=== PATIENT | male | born 1970 | race Caucasian/White ===

== ENCOUNTER 2016-10-25 08:14 | Emergency (ER) | payer OTHER ==
--- NOTE | 2016-10-25 10:38 | ED NURSING NOTES ---
Clinical Report - Nurses [facility] [address] [place] [address] 10/25/2016 8:19 Patient: TASH ODEN [facility]#: [id number] TRIAGE Triage time 08:Oct 25 2016. Acuity: LEVEL 4. Chief Complaint: Location of symptoms- left 2nd finger (Slammed finger in door of machinery and pulled). 08:26 10/25/16. SEPSIS SCREEN: Sepsis Screen. Negative (no infection suspected/documented). BRUNO COMA SCORE: Bruno Coma Scale: 15- eyes open spontaneously (4); best verbal response- oriented x 4 (5); best motor response- obeys commands (6). --08:26 Darline Palomares R.N. 08:20 10/25/16. BP: 134/92 (regular adult cuff) taken on the right arm, while sitting. HR: 82 (regular). RR: 18 (regular). O2 saturation: 99% on room air. Temp: 98.4 F (oral). Pain level now: 01/13. --08:26 Darline Palomares R.N. Weight: 90.7 kg stated. Height/Length: 74 inches Per Patient. BMI: 25.7. --08:24 Darline Palomares R.N. Medications None. --08:24 Darline Palomares R.N. Allergies Bees. --08:24 Darline Palomares R.N. History Historian: patient. Primary physician (LATRICIA MCINTOSH). This occurred just prior to arrival. Occurred at work. Treatment RECREATIONAL ASSISTANT: None. (Tylenol). SOCIAL HX: Current every day heavy tobacco smoker- less than 1 pack per day. Regular alcohol use; consumes beer. Last drink was 24 to 48 hours ago. No drug use. No infectious disease exposure. ABUSE ASSESSMENT: No report of abuse. --08:26 Darline Palomares R.N. PROBLEMS: no known problems. ADDITIONAL SURGERIES: Hernia Repair. Tonsillectomy. --08:25 Darline Palomares R.N. Interventions ID band on patient. To treatment room. --08:26 Darline Palomares R.N. PHYSICAL ASSESSMENT 08:32 10/25/16. Ambulatory to room. GENERAL / NEURO / PSYCH: Appears in pain. EXTREMITIES: Erythema on the extremities. Left index finger: tenderness, erythema, deep laceration with controlled bleeding and deformity of the fingertip. SKIN: Single tender wound present on the left hand. Skin is cool. Skin breakdown noted. --08:32 Darline Palomares R.N. NURSING PROGRESS NOTES 08:33 10/25/16. The plan of care for this patient has been created. Cold pack applied (hand placed in sterile water). Reassurance given. Two patient identifiers checked. Call light placed in reach. Side rails up x 1. Bed placed in lowest position. Brakes of bed on. Patient ready for evaluation- chart flagged and ED physician notified. --08:33 Darline Palomares R.N. 08:52 10/25/2016 Site #1 started via IV in the right forearm with an 20g angiocath, with aseptic technique and good blood return; one attempt. Blood drawn: rainbow set. Saline lock flushed with 10 mL saline. --09:07 Darline Palomares R.N. 09:07 10/25/2016 Started bag #1 1000 mL IV Fluids IV NS (Saline); bolus of 500 mL over 30 minute(s) then at 125 mL/hr over 4 hour(s) via site #1 via IV pump. Allergies verified and confirmed 5 rights. IV patency established. IV site checked: no pain, redness, or swelling. IV flushed thoroughly pre- and post-medication administration. --09:07 Darline Palomares R.N. 09:11 10/25/2016 Zofran (Ondansetron HCl) IVP 4 mg given over 1 minute(s) via site #1. Allergies verified and confirmed 5 rights. IV patency established. IV site checked: no pain, redness, or swelling. IV flushed thoroughly pre- and post-medication administration. IVP given by RN. --09:11 Darline Palomares R.N. 09:17 10/25/2016 Dilaudid (HYDROmorphone HCl PF) IVP 0.5 mg given over 1 minute(s) via site #1. Allergies verified, confirmed 5 rights and sedative warning given to the patient. IV patency established. IV site checked: no pain, redness, or swelling. IV flushed thoroughly pre- and post-medication administration. IVP given by RN. --09:17 Darline Palomares R.N. 09:19 10/25/16. ( Orthopedic surgeon is in with patient now). --09:19 Darline Palomares R.N. 09:30 10/25/2016 Zofran IVP Response: no adverse reaction. --11:02 Danis Lund R.N. 09:30 10/25/2016 Dilaudid IVP Response: no adverse reaction pain is improving. Symptoms have improved the patient feels better. --11:02 Danis Lund R.N. late entry - 09:45 10/25/16. Bleeding controlled with manual pressure. Wound cleansed with sterile saline. Debridement: Wound debridement involving skin ( full thickness) and bone performed (21-40 square centimeters) (Ortho surgeon debrided tissue, nail and bone). Applied sterile dressing consisting of xeroform. Tube gauze applied to the left 2nd finger. ( Ortho surgeon debrided and sutured wound closed). --11:44 Darline Palomares R.N. 09:55 10/25/2016 TDAP IM 0.5 mL given. (Lot#: [id number], expiration date: 05/13/2018). Given in the right deltoid. Allergies verified and confirmed 5 rights. Vaccine information statement provided to the patient. --09:55 Darline Palomares R.N. 09:55 10/25/16. ( Ortho doctor has finished.). --09:55 Darline Palomares R.N. 10:29 10/25/2016 Dilaudid (HYDROmorphone HCl PF) IVP 0.5 mg given over 1 minute(s) via site #1. Allergies verified, confirmed 5 rights and sedative warning given to the patient. IV patency established. IV site checked: no pain, redness, or swelling. IV flushed thoroughly pre- and post-medication administration. IVP given by RN. --10:31 Danis Lund R.N. 10:37 10/25/2016 TDAP IM Response: no adverse reaction. --11:03 Danis Lund R.N. 10:40 10/25/2016 IV Fluids IV NS Continued: upon discharge at the rate of 0 mL/hr. 200 mL remaining bag #1. IV patency established. IV site checked: no pain, redness, or swelling. IV flushed thoroughly. (D/c'd fluid on discharge. 800ml infused.). --11:01 Danis Lund R.N. 10:40 10/25/2016 Dilaudid IVP Response: no adverse reaction pain is improving. Symptoms have improved the patient feels better. --11:03 Danis Lund R.N. DISPOSITION / DISCHARGE 10:40 10/25/2016 Site #1 removed upon discharge. Bandage applied. --10:59 Danis Lund R.N. 10:58 10/25/16. Departure time: 1042. Condition at departure: improved and stable. No learning barriers present. Discharge instructions provided and reviewed with the patient. Reviewed warnings. Reviewed medication(s). Treatments reviewed. Reviewed referrals (F/U with Dr Marcelo Schrader). Activity restrictions reviewed. Work note given. Patient verbalized understanding. Written instructions provided in Marshallese. The patient was discharged by the physician. He was discharged home and accompanied by border guard. He left the Emergency Department ambulatory and via private vehicle. Newswriter driving. --11:00 Danis Lund R.N. 10:58 10/25/16. BP: 133/78. HR: 80. RR: 16. O2 saturation: 98% on room air. Temp: 98.5 F (oral). Pain level now: 09/15. --11:00 Danis Lund R.N. Locked/Released at 10/25/2016 11:45 by Darline Palomares R.N.
--- NOTE | 2016-10-25 10:38 | ED ORDER SUMMARY ---
..... Patient: TASH ODEN OrderSheet [facility] VisitID: [id number] [address] [place] [address] 45y, M Registration Date/Time: 10/25/2016 ORDER SHEET Weight: 90.7 kg (stated) Allergies: Bees GENERAL ORDERS: Finger Left (2nd finger left hand) (2 view) Urgent (08:33 10/25/2016 GAYLEanders R.N. per protocol) (Ack 8:36 Kelly) (8:50 GAYLEimbeck R.N.) MEDICATION ORDERS: Tdap IM 0.5 mL (NOW, per protocol) (08:55 10/25/2016 Beatrice WHITMORE) (Ack 9:19 GAYLEanders R.N.) (9:55 GAYLEanders R.N.) IV FLUIDS: Dilaudid IV 0.5 mg (HIGH ALERT MEDICATION, NOW) (08:46 10/25/2016 Beatrice WHITMORE) (9:17 JSanders R.N.) Zofran IV 4 mg (NOW) (08:47 10/25/2016 Beatrice WHITMORE) (9:11 GAYLEanders R.N.) IV NS : initial bolus 500 mL (1000 mL/hr), then 125 mL/hr for 4h (NOW); Urgent (08:47 10/25/2016 Beatrice WHITMORE) (9:07 JSanders R.N.) Dilaudid IV 0.5 mg (HIGH ALERT MEDICATION, NOW) (10:27 10/25/2016 Magda Burgos) (10:31 GAYLEimbvivek R.N.) ORDER SHEET NOTES: [Electronically signed by Darline Palomares R.N. (11:45 10/25/2016)] [Electronically signed by Robin Portillo MD (21:44 10/25/2016)] [Electronically locked/signed by Darline Palomares R.N. (11:45 10/25/2016)]
--- NOTE | 2016-10-25 10:38 | ED CLINICAL REPORT ---
Clinical Report - Physicians/Mid Levels [facility] [address] [place] [place] [address] 10/25/2016 8:19 [id number] Time Seen: 08:31. Arrived- By private vehicle. Historian- patient. HISTORY OF PRESENT ILLNESS Chief Complaint: Injury to the left index finger. The injury happened just prior to arrival. Occurred at work. The patient sustained a crush injury- caught hand in machine and door. Patient is experiencing moderate pain. No other injury. REVIEW OF SYSTEMS No chills, fever, sweats, calf pain or chest pain. No cough, difficulty breathing, pedal edema, palpitations or abdominal pain. No constipation, diarrhea, nausea, vomiting or urinary problems. All systems otherwise negative, except as recorded above. PAST HISTORY The patient's dominant hand is the right. Tetanus immunization status is unknown. SOCIAL HISTORY Current every day heavy tobacco smoker (cigarette)- less than 1 pack per day. Regular alcohol use; consumes beer. FAMILY HISTORY No significant family medical history. ADDITIONAL NOTES The nursing notes have been reviewed. PHYSICAL EXAM Vital Signs: 10/25/2016 08:20 BP: 134/92. HR: 82. RR: 18. O2 saturation: 99%. Temp: 98.4 F. Pain level now: 6/10. Have been reviewed. Head: Head atraumatic. Eyes: Pupils equal, round and reactive to light. ENT: Pharynx normal. Neck: Normal inspection. Neck supple. C-spine non-tender. CVS: Normal heart rate and rhythm. Heart sounds normal. Respiratory: No respiratory distress. Breath sounds normal. Abdomen: No visible injury. Soft and nontender. Bowel sounds normal. No organomegaly. No mass. Back: Normal inspection. Skin: Skin warm and dry. Extremities: Tip of left index finger: full thickness tip amputation present; exposed bone with a visible fracture and bone loss. No wrist injury. Extremities otherwise negative. LABS, X-RAYS, AND EKG Lt UE Digits X-ray: (Left index finger distal tuft amputation). The X-rays were independently viewed by me. PROGRESS AND PROCEDURES Course of Care: Patient is stable. Consult obtained from orthopedics. Dr. Robertson. Case discussed. Consultation performed in ED. Patient/family counseled. Old medical records ordered. Old records unavailable. ( Dr. Robertson asked to place the patient on Keflex and has a F/U with him in 5 days at ortho clinic.). Disposition: Discharged. Condition: stable. CLINICAL IMPRESSION Tip amputation of the left index finger involving all of the nail and part of the distal phalanx. INSTRUCTIONS Protect wound and keep wound area clean. Change dressing twice daily. You may wash wounds briefly, then dry. Apply neosporin twice daily. No driving or operating machinery while taking medication. Sedative medication was given during your visit. Limit use of your left hand until released. Warnings: COMPLICATIONS: Complications from this condition include: possible infection, possible injury to a nerve, possible injury to a tendon and possible injury to a ligament. Future problems may include infection, scarring, loss of function, pain and deformity. Future problems may include poor fracture healing. INFECTION: Watch for signs of infection (increasing heat and redness, pus-like drainage, swelling, or increased pain). Return or see your doctor if these signs occur. It is important to follow up with a physician for further evaluation and treatment. TETANUS: You were given a tetanus shot during your visit. Make a note for future reference. GENERAL WARNINGS: Return or contact your physician immediately if your condition worsens or changes unexpectedly, if not improving as expected, or if other problems arise. Prescription Medications: Hydrocodone/APAP 5mg/325mg: take 1 to 2 orally every 6 hours as needed for pain. Dispense fifteen (15). No refills. Cephalexin 500 mg: take 1 capsule orally every 6 hours for 7 days. No refill. Understanding of the discharge instructions verbalized by patient. Follow-up with: [facility], , [address] [place], [address] Follow up Sunday in five days. Call for an appointment. (Electronically signed by Robin Portillo MD 10/25/2016 21:44)
--- NOTE | 2016-10-25 10:38 | ED CLINICAL REPORT ---
Clinical Report - Physicians/Mid Levels [facility] [address] [place] [place] [address] 10/25/2016 8:19 [id number] Time Seen: 08:31. Arrived- By private vehicle. Historian- patient. HISTORY OF PRESENT ILLNESS Chief Complaint: Injury to the left index finger. The injury happened just prior to arrival. Occurred at work. The patient sustained a crush injury- caught hand in machine and door. Patient is experiencing moderate pain. No other injury. REVIEW OF SYSTEMS No chills, fever, sweats, calf pain or chest pain. No cough, difficulty breathing, pedal edema, palpitations or abdominal pain. No constipation, diarrhea, nausea, vomiting or urinary problems. All systems otherwise negative, except as recorded above. PAST HISTORY The patient's dominant hand is the right. Tetanus immunization status is unknown. SOCIAL HISTORY Current every day heavy tobacco smoker (cigarette)- less than 1 pack per day. Regular alcohol use; consumes beer. FAMILY HISTORY No significant family medical history. ADDITIONAL NOTES The nursing notes have been reviewed. PHYSICAL EXAM Vital Signs: 10/25/2016 08:20 BP: 134/92. HR: 82. RR: 18. O2 saturation: 99%. Temp: 98.4 F. Pain level now: 6/10. Have been reviewed. Head: Head atraumatic. Eyes: Pupils equal, round and reactive to light. ENT: Pharynx normal. Neck: Normal inspection. Neck supple. C-spine non-tender. CVS: Normal heart rate and rhythm. Heart sounds normal. Respiratory: No respiratory distress. Breath sounds normal. Abdomen: No visible injury. Soft and nontender. Bowel sounds normal. No organomegaly. No mass. Back: Normal inspection. Skin: Skin warm and dry. Extremities: Tip of left index finger: full thickness tip amputation present; exposed bone with a visible fracture and bone loss. No wrist injury. Extremities otherwise negative. LABS, X-RAYS, AND EKG Lt UE Digits X-ray: (Left index finger distal tuft amputation). The X-rays were independently viewed by me. PROGRESS AND PROCEDURES Course of Care: Patient is stable. Consult obtained from orthopedics. Dr. Robertson. Case discussed. Consultation performed in ED. Patient/family counseled. Old medical records ordered. Old records unavailable. ( Dr. Robertson asked to place the patient on Keflex and has a F/U with him in 5 days at ortho clinic.). Disposition: Discharged. Condition: stable. CLINICAL IMPRESSION Tip amputation of the left index finger involving all of the nail and part of the distal phalanx. INSTRUCTIONS Protect wound and keep wound area clean. Change dressing twice daily. You may wash wounds briefly, then dry. Apply neosporin twice daily. No driving or operating machinery while taking medication. Sedative medication was given during your visit. Limit use of your left hand until released. Warnings: COMPLICATIONS: Complications from this condition include: possible infection, possible injury to a nerve, possible injury to a tendon and possible injury to a ligament. Future problems may include infection, scarring, loss of function, pain and deformity. Future problems may include poor fracture healing. INFECTION: Watch for signs of infection (increasing heat and redness, pus-like drainage, swelling, or increased pain). Return or see your doctor if these signs occur. It is important to follow up with a physician for further evaluation and treatment. TETANUS: You were given a tetanus shot during your visit. Make a note for future reference. GENERAL WARNINGS: Return or contact your physician immediately if your condition worsens or changes unexpectedly, if not improving as expected, or if other problems arise. Prescription Medications: Hydrocodone/APAP 5mg/325mg: take 1 to 2 orally every 6 hours as needed for pain. Dispense fifteen (15). No refills. Cephalexin 500 mg: take 1 capsule orally every 6 hours for 7 days. No refill. Understanding of the discharge instructions verbalized by patient. Follow-up with: [facility], , [address] [place], [address] Follow up Sunday in five days. Call for an appointment. (Electronically signed by Robin Portillo MD 10/25/2016 21:44)
--- NOTE | 2016-10-25 10:38 | ED NURSING NOTES ---
Clinical Report - Nurses [facility] [address] [place] [address] 10/25/2016 8:19 Patient: TASH ODEN [facility]#: [id number] TRIAGE Triage time 08:Oct 25 2016. Acuity: LEVEL 4. Chief Complaint: Location of symptoms- left 2nd finger (Slammed finger in door of machinery and pulled). 08:26 10/25/16. SEPSIS SCREEN: Sepsis Screen. Negative (no infection suspected/documented). BRUNO COMA SCORE: Bruno Coma Scale: 15- eyes open spontaneously (4); best verbal response- oriented x 4 (5); best motor response- obeys commands (6). --08:26 Darlien Palomares R.N. 08:20 10/25/16. BP: 134/92 (regular adult cuff) taken on the right arm, while sitting. HR: 82 (regular). RR: 18 (regular). O2 saturation: 99% on room air. Temp: 98.4 F (oral). Pain level now: 01/13. --08:26 Darline Palomares R.N. Weight: 90.7 kg stated. Height/Length: 74 inches Per Patient. BMI: 25.7. --08:24 Darline Palomares R.N. Medications None. --08:24 Darline Palomares R.N. Allergies Bees. --08:24 Darline Palomares R.N. History Historian: patient. Primary physician (LATRICIA MCINTOSH). This occurred just prior to arrival. Occurred at work. Treatment DRIVING TEACHER: None. (Tylenol). SOCIAL HX: Current every day heavy tobacco smoker- less than 1 pack per day. Regular alcohol use; consumes beer. Last drink was 24 to 48 hours ago. No drug use. No infectious disease exposure. ABUSE ASSESSMENT: No report of abuse. --08:26 Darline Palomares R.N. PROBLEMS: no known problems. ADDITIONAL SURGERIES: Hernia Repair. Tonsillectomy. --08:25 Darline Palomares R.N. Interventions ID band on patient. To treatment room. --08:26 Darline Palomares R.N. PHYSICAL ASSESSMENT 08:32 10/25/16. Ambulatory to room. GENERAL / NEURO / PSYCH: Appears in pain. EXTREMITIES: Erythema on the extremities. Left index finger: tenderness, erythema, deep laceration with controlled bleeding and deformity of the fingertip. SKIN: Single tender wound present on the left hand. Skin is cool. Skin breakdown noted. --08:32 Darline Palomares R.N. NURSING PROGRESS NOTES 08:33 10/25/16. The plan of care for this patient has been created. Cold pack applied (hand placed in sterile water). Reassurance given. Two patient identifiers checked. Call light placed in reach. Side rails up x 1. Bed placed in lowest position. Brakes of bed on. Patient ready for evaluation- chart flagged and ED physician notified. --08:33 Darline Palomares R.N. 08:52 10/25/2016 Site #1 started via IV in the right forearm with an 20g angiocath, with aseptic technique and good blood return; one attempt. Blood drawn: rainbow set. Saline lock flushed with 10 mL saline. --09:07 Darline Palomares R.N. 09:07 10/25/2016 Started bag #1 1000 mL IV Fluids IV NS (Saline); bolus of 500 mL over 30 minute(s) then at 125 mL/hr over 4 hour(s) via site #1 via IV pump. Allergies verified and confirmed 5 rights. IV patency established. IV site checked: no pain, redness, or swelling. IV flushed thoroughly pre- and post-medication administration. --09:07 Darline Palomares R.N. 09:11 10/25/2016 Zofran (Ondansetron HCl) IVP 4 mg given over 1 minute(s) via site #1. Allergies verified and confirmed 5 rights. IV patency established. IV site checked: no pain, redness, or swelling. IV flushed thoroughly pre- and post-medication administration. IVP given by RN. --09:11 Darline Palomares R.N. 09:17 10/25/2016 Dilaudid (HYDROmorphone HCl PF) IVP 0.5 mg given over 1 minute(s) via site #1. Allergies verified, confirmed 5 rights and sedative warning given to the patient. IV patency established. IV site checked: no pain, redness, or swelling. IV flushed thoroughly pre- and post-medication administration. IVP given by RN. --09:17 Darline Palomares R.N. 09:19 10/25/16. ( Orthopedic surgeon is in with patient now). --09:19 Darline Palomares R.N. 09:30 10/25/2016 Zofran IVP Response: no adverse reaction. --11:02 Danis Lund R.N. 09:30 10/25/2016 Dilaudid IVP Response: no adverse reaction pain is improving. Symptoms have improved the patient feels better. --11:02 Danis Lund R.N. late entry - 09:45 10/25/16. Bleeding controlled with manual pressure. Wound cleansed with sterile saline. Debridement: Wound debridement involving skin ( full thickness) and bone performed (21-40 square centimeters) (Ortho surgeon debrided tissue, nail and bone). Applied sterile dressing consisting of xeroform. Tube gauze applied to the left 2nd finger. ( Ortho surgeon debrided and sutured wound closed). --11:44 Darline Palomares R.N. 09:55 10/25/2016 TDAP IM 0.5 mL given. (Lot#: [id number], expiration date: 05/13/2018). Given in the right deltoid. Allergies verified and confirmed 5 rights. Vaccine information statement provided to the patient. --09:55 Darline Palomares R.N. 09:55 10/25/16. ( Ortho doctor has finished.). --09:55 Darline Palomares R.N. 10:29 10/25/2016 Dilaudid (HYDROmorphone HCl PF) IVP 0.5 mg given over 1 minute(s) via site #1. Allergies verified, confirmed 5 rights and sedative warning given to the patient. IV patency established. IV site checked: no pain, redness, or swelling. IV flushed thoroughly pre- and post-medication administration. IVP given by RN. --10:31 Danis Lund R.N. 10:37 10/25/2016 TDAP IM Response: no adverse reaction. --11:03 Danis Lund R.N. 10:40 10/25/2016 IV Fluids IV NS Continued: upon discharge at the rate of 0 mL/hr. 200 mL remaining bag #1. IV patency established. IV site checked: no pain, redness, or swelling. IV flushed thoroughly. (D/c'd fluid on discharge. 800ml infused.). --11:01 Danis Lund R.N. 10:40 10/25/2016 Dilaudid IVP Response: no adverse reaction pain is improving. Symptoms have improved the patient feels better. --11:03 Danis Lund R.N. DISPOSITION / DISCHARGE 10:40 10/25/2016 Site #1 removed upon discharge. Bandage applied. --10:59 Danis Lund R.N. 10:58 10/25/16. Departure time: 1042. Condition at departure: improved and stable. No learning barriers present. Discharge instructions provided and reviewed with the patient. Reviewed warnings. Reviewed medication(s). Treatments reviewed. Reviewed referrals (F/U with Dr Marcelo Schrader). Activity restrictions reviewed. Work note given. Patient verbalized understanding. Written instructions provided in Luxembourger. The patient was discharged by the physician. He was discharged home and accompanied by crude unit operator. He left the Emergency Department ambulatory and via private vehicle. Cable Cutter And Swager driving. --11:00 Danis Lund R.N. 10:58 10/25/16. BP: 133/78. HR: 80. RR: 16. O2 saturation: 98% on room air. Temp: 98.5 F (oral). Pain level now: 09/15. --11:00 Danis Lund R.N. Locked/Released at 10/25/2016 11:45 by Darline Palomares R.N.
--- NOTE | 2016-10-25 10:38 | ED ORDER SUMMARY ---
..... Patient: TASH ODEN OrderSheet [facility] VisitID: [id number] [address] [place] [address] 45y, M Registration Date/Time: 10/25/2016 ORDER SHEET Weight: 90.7 kg (stated) Allergies: Bees GENERAL ORDERS: Finger Left (2nd finger left hand) (2 view) Urgent (08:33 10/25/2016 GAYLEanders R.N. per protocol) (Ack 8:36 Kelly) (8:50 GAYLEimbeck R.N.) MEDICATION ORDERS: Tdap IM 0.5 mL (NOW, per protocol) (08:55 10/25/2016 Beatrice WHITMORE) (Ack 9:19 GAYLEanders R.N.) (9:55 GAYLEanders R.N.) IV FLUIDS: Dilaudid IV 0.5 mg (HIGH ALERT MEDICATION, NOW) (08:46 10/25/2016 Beatrice WHITMORE) (9:17 JSanders R.N.) Zofran IV 4 mg (NOW) (08:47 10/25/2016 Beatrice WHITMORE) (9:11 GAYLEanders R.N.) IV NS : initial bolus 500 mL (1000 mL/hr), then 125 mL/hr for 4h (NOW); Urgent (08:47 10/25/2016 Beatrice WHITMORE) (9:07 JSanders R.N.) Dilaudid IV 0.5 mg (HIGH ALERT MEDICATION, NOW) (10:27 10/25/2016 Magda Burgos) (10:31 GAYLEimbvivek R.N.) ORDER SHEET NOTES: [Electronically signed by Darline Palomares R.N. (11:45 10/25/2016)] [Electronically signed by Robin Portillo MD (21:44 10/25/2016)] [Electronically locked/signed by Darline Palomares R.N. (11:45 10/25/2016)]
--- NOTE | 2016-10-25 10:46 | DIAGNOSTIC IMAGING REPORT ---
PROCEDURE: XR FINGER - LEFT INDICATION: TRAUMA/INJURY TECHNIQUE: Four views. COMPARISON: None. FINDINGS: Fracture of the distal tuft of the second digit on the left. IMPRESSION: 1. Distal tuft fracture second digit left
--- NOTE | 2016-10-25 11:03 | CONSULTATION REPORT ---
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 He comes to the emergency department for treatment. MEDICAL/SURGICAL HISTORY: Past medical history is noncontributory. ALLERGIES: NO ALLERGIES TO MEDICATIONS. PHYSICAL EXAMINATION: He has amputated the distal 7-8 mm of his finger including nearly the entire nail bed and the distal part of the distal phalanx is exposed. He has no other abnormalities. His finger is quite dirty from work. PROCEDURE: Under sterile conditions, he had revision of the amputation, so that the end of the tip could be closed and he tolerated that well. He understands the risks of infection, wound breakdown and agrees. He will follow up in the office in 5 days.
--- NOTE | 2016-10-25 11:03 | PROCEDURE NOTE ---
DATE OF PROCEDURE: 10/25/2016 ATTENDING PHYSICIAN/PROVIDER: Juan Robertson MD PREPROCEDURE DIAGNOSIS: 1. Left index finger distal amputation POSTPROCEDURE DIAGNOSIS: 1. Left index finger distal amputation PROCEDURE PERFORMED: 1. Revision of left index finger amputation SURGICAL TECHNIQUE: The patient was placed in an ER gurney, and after a 2% lidocaine digital block was obtained, his left index finger was prepped and draped in the usual fashion. A small rim of remaining nail bed was excised using a scalpel. The distal tuft was then shortened with a rongeur until the volar flap could be brought over the top and used to close the wound and cover the bone. That was held in place with 4-0 nylon sutures. Sterile dressing was applied. The patient tolerated the procedure well and was released to follow up in the office in 5 days. He will be given pain medicine and antibiotics by the emergency department doctor.
--- NOTE | 2016-10-25 21:44 | ED DISCHARGE INSTRUCTIONS ---
Patient: TASH ODEN General Instructions [facility] VisitID: [id number] [address] [place] [address] 45y, M Registration Date/Time: 10/25/2016 Tip amputation of the left index finger involving all of the nail and part of the distal phalanx. INSTRUCTIONS Protect wound and keep wound area clean. Change dressing twice daily. You may wash wounds briefly, then dry. Apply neosporin twice daily. No driving or operating machinery while taking medication. Sedative medication was given during your visit. Limit use of your left hand until released. Warnings: COMPLICATIONS: Complications from this condition include: possible infection, possible injury to a nerve, possible injury to a tendon and possible injury to a ligament. Future problems may include infection, scarring, loss of function, pain and deformity. Future problems may include poor fracture healing. INFECTION: Watch for signs of infection (increasing heat and redness, pus-like drainage, swelling, or increased pain). Return or see your doctor if these signs occur. It is important to follow up with a physician for further evaluation and treatment. TETANUS: You were given a tetanus shot during your visit. Make a note for future reference. GENERAL WARNINGS: Return or contact your physician immediately if your condition worsens or changes unexpectedly, if not improving as expected, or if other problems arise. Prescription Medications: Hydrocodone/APAP 5mg/325mg: take 1 to 2 orally every 6 hours as needed for pain. Dispense fifteen (15). No refills. Cephalexin 500 mg: take 1 capsule orally every 6 hours for 7 days. No refill. Understanding of the discharge instructions verbalized by patient. Follow-up with: [facility], , [address], , [place], [address] Follow up Sunday in five days. Call for an appointment. ADDITIONAL INFORMATION Finger Tip Amputation [Open Treatment] You have cut off the tip of your finger. When this happens there is skin missing and the wound cannot be fully covered by sewing the edges together. For your type of injury, the best result can be obtained by allowing the wound to heal on its own by growing new skin from the sides. Depending on the size of the wound, it will take from 26 weeks for the wound to fill in with new skin. Once healed, you should have normal feeling in the new skin. Antibiotics may be used to prevent infection if the wound is dirty or if the bone or tendons were involved. Home care The following guidelines will help you care for your wound at home: Keep the injured hand elevated during the first two days to reduce swelling and pain. Keep the bandage clean and dry. If the dressing stays on longer than two days, it will stick to the wound. Unless, you have a doctor appointment in two days, change the bandage as described below. If you were advised to change your own dressing, follow these directions regardingbandage removal and replacement: If the dressing sticks to the wound, you can loosen it by soaking the dressing under warm running water. Once the dressing is removed, clean the wound with soap and water. Apply an antibiotic ointment. Bulky gauze dressing should be used for the first two days for additional protection from injury. Cover with a nonstick gauze pad or wrap with bandage gauze. After that, if your wound is small and not too painful, a large stretch bandage is okay to use. You may shower as usual, but keep your dressing dry by using a small plastic trash bag over the hand, rubber-banded at the wrist. Do not soak your hand in water (no baths or swimming) until approved by your doctor. If antibiotics were prescribed, take them all until they are gone. You may use [id number] pain medication unless another pain medicine was prescribed. If you have chronic liver or kidney disease or ever had a stomach ulcer or GI bleeding, talk with your doctor before using these medicines. If a numbing medicine was used on your finger it will wear off in 16 hours. Begin taking your pain medicinebeforethis happens, since there may be throbbing or pain during the first few days. Follow-up care An infection may sometimes occur even though proper treatment was given. If no appointment was given for a wound check, and if your doctor did not advise against it, you may check the wound yourself at home in two days by carefully removing the dressing as described above. If stitches were used, they should be removed within 714 days, as advised by your doctor. [Note: If X-rays were taken, a radiologist will review them and you will be notified of any new findings that may affect your care.] When to seek medical care Get prompt medical attention if any of the following occur: Increasing pain in the wound Redness or swelling around the wound Pus or fluid coming from the wound or foul odor from a cast or splint If sutures or stephon come apart or fall out before your next appointment Fever of 100.4F (38C) or higher, or as directed by your health care provider Bleeding not controlled by direct pressure Bandage Change If the bandage becomes wet or dirty, replace it. Otherwise, leave it in place for the first 24 hours. Then once a day: After removing the bandage, wash the area with soap and water. Use a wet cotton swab to loosen and remove any blood or crust that forms on the wound. After cleaning, apply a thin layer of antibiotic ointment or cream. Reapply the bandage. You may shower as usual after the first 24 hours. If the bandage is on an arm or leg, cover it with a plastic bag rubber banded at both ends before showering. No tub baths or swimming until the bandage is removed and the wound healed (at least 7 days). Diphtheria Toxoid Adsorbed, Pertussis Vaccine, Acellular (Adsorbed), Tetanus Toxoid, Adsorbed Suspension for injection What is this medicine? DIPHTHERIA and TETANUS TOXOIDS; PERTUSSIS VACCINE (dif THEER ee uh and TET n us TOK soids; per KADI acuña SEEN) is used to prevent diphtheria, tetanus, and pertussis infections. How should I use this medicine? This vaccine is for injection into a muscle. It is given by a health caregiver services home. A copy of Vaccine Information Statements will be given before each vaccination. Read this sheet carefully each time. The sheet may change frequently. Talk to your bar and filler assembler regarding the use of this vaccine in children. While the DTP vaccine may be given to children ages 6 weeks to 7 years and the Tdap vaccine may be given to children at least 10 years old, precautions do apply. What side effects may I notice from receiving this medicine? Side effects that you should report to your doctor or health caregiver services home as soon as possible: allergic reactions like skin rash, itching or hives, swelling of the face, lips, or tongue breathing problems fever of 103 degrees F or more flu-like symptoms inconsolable crying infection pain, tingling, numbness in the hands or feet seizures swelling of arm or leg that was injected unusually weak or tired Side effects that usually do not require immediate medical attention (report these side effects to your doctor or health caregiver services home if they continue or are bothersome): fussy, irritable loss of appetite fever of 102 degrees F or less pain, tenderness, redness, swelling, or a 'knot' at site where injected vomiting What may interact with this medicine? immune globulin medicines that suppress your immune function like adalimumab, anakinra, infliximab medicines to treat cancer medicines that treat or prevent blood clots like warfarin, enoxaparin, and dalteparin steroid medicines like prednisone or cortisone What if I miss a dose? It is important not to miss your dose. Call your doctor or health caregiver services home if you are unable to keep an appointment. Where should I keep my medicine? This drug is given in a hospital or clinic and will not be stored at home. What should I tell my health care provider before I take this medicine? They need to know if you have any of these conditions: blood disorders like hemophilia fever or infection immune system problems neurologic disease seizures an unusual or allergic reaction to vaccines, thimerosal, latex, other medicines, foods, dyes, or preservatives or trying to get breast-feeding What should I watch for while using this medicine? See your health care provider for all shots of this vaccine as directed. To have protection from infection, you must have 3 shots of this vaccine plus boosters as needed. Tell your doctor right away if you have any serious or unusual side effects after getting this vaccine. Hydrocodone Bitartrate, Acetaminophen Oral tablet What is this medicine? ACETAMINOPHEN; HYDROCODONE (a set a JENISE anthony fen; rachelle droe KOE done) is a pain reliever. It is used to treat mild to moderate pain. How should I use this medicine? Take this medicine by mouth. Swallow it with a full glass of water. Follow the directions on the prescription label. If the medicine upsets your stomach, take the medicine with food or milk. Do not take more than you are told to take. Talk to your bar and filler assembler regarding the use of this medicine in children. This medicine is not approved for use in children. What side effects may I notice from receiving this medicine? Side effects that you should report to your doctor or health caregiver services home as soon as possible: allergic reactions like skin rash, itching or hives, swelling of the face, lips, or tongue breathing problems confusion feeling faint or lightheaded, falls stomach pain yellowing of the eyes or skin Side effects that usually do not require medical attention (report to your doctor or health caregiver services home if they continue or are bothersome): nausea, vomiting stomach upset What may interact with this medicine? alcohol antihistamines isoniazid medicines for depression, anxiety, or psychotic disturbances medicines for sleep muscle relaxants naltrexone narcotic medicines (opiates) for pain phenobarbital ritonavir tramadol What if I miss a dose? If you miss a dose, take it as soon as you can. If it is almost time for your next dose, take only that dose. Do not take double or extra doses. Where should I keep my medicine? Keep out of the reach of children. This medicine can be abused. Keep your medicine in a safe place to protect it from theft. Do not share this medicine with anyone. Selling or giving away this medicine is dangerous and against the law. Store at room temperature between 15 and 30 degrees C (59 and 86 degrees F). Protect from light. Keep container tightly closed. Throw away any unused medicine after the expiration date. Discard unused medicine and used packaging carefully. Pets and children can be harmed if they find used or lost packages. What should I tell my health care provider before I take this medicine? They need to know if you have any of these conditions: brain tumor Crohn's disease, inflammatory bowel disease, or ulcerative colitis drink more than 3 alcohol-containing drinks per day drug abuse or addiction head injury heart or circulation problems kidney disease or problems going to the bathroom liver disease lung disease, asthma, or breathing problems an unusual or allergic reaction to acetaminophen, hydrocodone, other opioid analgesics, other medicines, foods, dyes, or preservatives or trying to get breast-feeding What should I watch for while using this medicine? Tell your doctor or health caregiver services home if your pain does not go away, if it gets worse, or if you have new or a different type of pain. You may develop tolerance to the medicine. Tolerance means that you will need a higher dose of the medicine for pain relief. Tolerance is normal and is expected if you take the medicine for a long time. Do not suddenly stop taking your medicine because you may develop a severe reaction. Your body becomes used to the medicine. This does NOT mean you are addicted. Addiction is a behavior related to getting and using a drug for a non-medical reason. If you have pain, you have a medical reason to take pain medicine. Your doctor will tell you how much medicine to take. If your doctor wants you to stop the medicine, the dose will be slowly lowered over time to avoid any side effects. You may get drowsy or dizzy when you first start taking the medicine or change doses. Do not drive, use machinery, or do anything that may be dangerous until you know how the medicine affects you. Stand or sit up slowly. There are different types of narcotic medicines (opiates) for pain. If you take more than one type at the same time, you may have more side effects. Give your health care provider a list of all medicines you use. Your doctor will tell you how much medicine to take. Do not take more medicine than directed. Call emergency for help if you have problems breathing. The medicine will cause constipation. Try to have a bowel movement at least every 2 to 3 days. If you do not have a bowel movement for 3 days, call your doctor or health caregiver services home. Too much acetaminophen can be very dangerous. Do not take Tylenol (acetaminophen) or medicines that contain acetaminophen with this medicine. Many non-prescription medicines contain acetaminophen. Always read the labels carefully. Cephalexin Monohydrate Oral tablet What is this medicine? CEPHALEXIN (sef a KRISSY in) is a cephalosporin antibiotic. It is used to treat certain kinds of bacterial infections It will not work for colds, flu, or other viral infections. How should I use this medicine? Take this medicine by mouth with a full glass of water. Follow the directions on the prescription label. This medicine can be taken with or without food. Take your medicine at regular intervals. Do not take your medicine more often than directed. Take all of your medicine as directed even if you think you are better. Do not skip doses or stop your medicine early. Talk to your bar and filler assembler regarding the use of this medicine in children. While this drug may be prescribed for selected conditions, precautions do apply. What side effects may I notice from receiving this medicine? Side effects that you should report to your doctor or health caregiver services home as soon as possible: allergic reactions like skin rash, itching or hives, swelling of the face, lips, or tongue breathing problems pain or trouble passing urine redness, blistering, peeling or loosening of the skin, including inside the mouth severe or watery diarrhea unusually weak or tired yellowing of the eyes, skin Side effects that usually do not require medical attention (report to your doctor or health caregiver services home if they continue or are bothersome): gas or heartburn genital or anal irritation headache joint or muscle pain nausea, vomiting What may interact with this medicine? probenecid some other antibiotics What if I miss a dose? If you miss a dose, take it as soon as you can. If it is almost time for your next dose, take only that dose. Do not take double or extra doses. There should be at least 4 to 6 hours between doses. Where should I keep my medicine? Keep out of the reach of children. Store at room temperature between 59 and 86 degrees F (15 and 30 degrees C). Throw away any unused medicine after the expiration date. What should I tell my health care provider before I take this medicine? They need to know if you have any of these conditions: kidney disease stomach or intestine problems, especially colitis an unusual or allergic reaction to cephalexin, other cephalosporins, penicillins, other antibiotics, medicines, foods, dyes or preservatives or trying to get breast-feeding What should I watch for while using this medicine? Tell your doctor or health caregiver services home if your symptoms do not begin to improve in a few days. Do not treat diarrhea with over the counter products. Contact your doctor if you have diarrhea that lasts more than 2 days or if it is severe and watery. If you have diabetes, you may get a false-positive result for sugar in your urine. Check with your doctor or health caregiver services home. You have been given the following additional information: Finger Tip Amputation, Open Treatment Dressing Change Diphtheria Toxoid Adsorbed, Pertussis Vaccine, Acellular (Adsorbed), Tetanus Toxoid, Adsorbed Suspension for injection Hydrocodone Bitartrate, Acetaminophen Oral tablet Cephalexin Monohydrate Oral tablet No driving or operating machinery while taking medication. Sedative medication was given during your visit. Limit use of your left hand until released. (Electronically signed by Robin Portillo MD 10/25/2016 21:44)
--- NOTE | 2016-10-25 21:44 | ED DISCHARGE INSTRUCTIONS ---
Patient: TASH ODEN General Instructions [facility] VisitID: [id number] [address] [place] [address] 45y, M Registration Date/Time: 10/25/2016 Tip amputation of the left index finger involving all of the nail and part of the distal phalanx. INSTRUCTIONS Protect wound and keep wound area clean. Change dressing twice daily. You may wash wounds briefly, then dry. Apply neosporin twice daily. No driving or operating machinery while taking medication. Sedative medication was given during your visit. Limit use of your left hand until released. Warnings: COMPLICATIONS: Complications from this condition include: possible infection, possible injury to a nerve, possible injury to a tendon and possible injury to a ligament. Future problems may include infection, scarring, loss of function, pain and deformity. Future problems may include poor fracture healing. INFECTION: Watch for signs of infection (increasing heat and redness, pus-like drainage, swelling, or increased pain). Return or see your doctor if these signs occur. It is important to follow up with a physician for further evaluation and treatment. TETANUS: You were given a tetanus shot during your visit. Make a note for future reference. GENERAL WARNINGS: Return or contact your physician immediately if your condition worsens or changes unexpectedly, if not improving as expected, or if other problems arise. Prescription Medications: Hydrocodone/APAP 5mg/325mg: take 1 to 2 orally every 6 hours as needed for pain. Dispense fifteen (15). No refills. Cephalexin 500 mg: take 1 capsule orally every 6 hours for 7 days. No refill. Understanding of the discharge instructions verbalized by patient. Follow-up with: [facility], , [address], , [place], [id number] Follow up Sunday in five days. Call for an appointment. ADDITIONAL INFORMATION Finger Tip Amputation [Open Treatment] You have cut off the tip of your finger. When this happens there is skin missing and the wound cannot be fully covered by sewing the edges together. For your type of injury, the best result can be obtained by allowing the wound to heal on its own by growing new skin from the sides. Depending on the size of the wound, it will take from 26 weeks for the wound to fill in with new skin. Once healed, you should have normal feeling in the new skin. Antibiotics may be used to prevent infection if the wound is dirty or if the bone or tendons were involved. Home care The following guidelines will help you care for your wound at home: Keep the injured hand elevated during the first two days to reduce swelling and pain. Keep the bandage clean and dry. If the dressing stays on longer than two days, it will stick to the wound. Unless, you have a doctor appointment in two days, change the bandage as described below. If you were advised to change your own dressing, follow these directions regardingbandage removal and replacement: If the dressing sticks to the wound, you can loosen it by soaking the dressing under warm running water. Once the dressing is removed, clean the wound with soap and water. Apply an antibiotic ointment. Bulky gauze dressing should be used for the first two days for additional protection from injury. Cover with a nonstick gauze pad or wrap with bandage gauze. After that, if your wound is small and not too painful, a large stretch bandage is okay to use. You may shower as usual, but keep your dressing dry by using a small plastic trash bag over the hand, rubber-banded at the wrist. Do not soak your hand in water (no baths or swimming) until approved by your doctor. If antibiotics were prescribed, take them all until they are gone. You may use [id number] pain medication unless another pain medicine was prescribed. If you have chronic liver or kidney disease or ever had a stomach ulcer or GI bleeding, talk with your doctor before using these medicines. If a numbing medicine was used on your finger it will wear off in 16 hours. Begin taking your pain medicinebeforethis happens, since there may be throbbing or pain during the first few days. Follow-up care An infection may sometimes occur even though proper treatment was given. If no appointment was given for a wound check, and if your doctor did not advise against it, you may check the wound yourself at home in two days by carefully removing the dressing as described above. If stitches were used, they should be removed within 714 days, as advised by your doctor. [Note: If X-rays were taken, a radiologist will review them and you will be notified of any new findings that may affect your care.] When to seek medical care Get prompt medical attention if any of the following occur: Increasing pain in the wound Redness or swelling around the wound Pus or fluid coming from the wound or foul odor from a cast or splint If sutures or stephon come apart or fall out before your next appointment Fever of 100.4F (38C) or higher, or as directed by your health care provider Bleeding not controlled by direct pressure Bandage Change If the bandage becomes wet or dirty, replace it. Otherwise, leave it in place for the first 24 hours. Then once a day: After removing the bandage, wash the area with soap and water. Use a wet cotton swab to loosen and remove any blood or crust that forms on the wound. After cleaning, apply a thin layer of antibiotic ointment or cream. Reapply the bandage. You may shower as usual after the first 24 hours. If the bandage is on an arm or leg, cover it with a plastic bag rubber banded at both ends before showering. No tub baths or swimming until the bandage is removed and the wound healed (at least 7 days). Diphtheria Toxoid Adsorbed, Pertussis Vaccine, Acellular (Adsorbed), Tetanus Toxoid, Adsorbed Suspension for injection What is this medicine? DIPHTHERIA and TETANUS TOXOIDS; PERTUSSIS VACCINE (dif THEER ee uh and TET n us TOK soids; per KADI acuña SEEN) is used to prevent diphtheria, tetanus, and pertussis infections. How should I use this medicine? This vaccine is for injection into a muscle. It is given by a health career services assistant. A copy of Vaccine Information Statements will be given before each vaccination. Read this sheet carefully each time. The sheet may change frequently. Talk to your quality associate regarding the use of this vaccine in children. While the DTP vaccine may be given to children ages 6 weeks to 7 years and the Tdap vaccine may be given to children at least 10 years old, precautions do apply. What side effects may I notice from receiving this medicine? Side effects that you should report to your doctor or health career services assistant as soon as possible: allergic reactions like skin rash, itching or hives, swelling of the face, lips, or tongue breathing problems fever of 103 degrees F or more flu-like symptoms inconsolable crying infection pain, tingling, numbness in the hands or feet seizures swelling of arm or leg that was injected unusually weak or tired Side effects that usually do not require immediate medical attention (report these side effects to your doctor or health career services assistant if they continue or are bothersome): fussy, irritable loss of appetite fever of 102 degrees F or less pain, tenderness, redness, swelling, or a 'knot' at site where injected vomiting What may interact with this medicine? immune globulin medicines that suppress your immune function like adalimumab, anakinra, infliximab medicines to treat cancer medicines that treat or prevent blood clots like warfarin, enoxaparin, and dalteparin steroid medicines like prednisone or cortisone What if I miss a dose? It is important not to miss your dose. Call your doctor or health career services assistant if you are unable to keep an appointment. Where should I keep my medicine? This drug is given in a hospital or clinic and will not be stored at home. What should I tell my health care provider before I take this medicine? They need to know if you have any of these conditions: blood disorders like hemophilia fever or infection immune system problems neurologic disease seizures an unusual or allergic reaction to vaccines, thimerosal, latex, other medicines, foods, dyes, or preservatives or trying to get breast-feeding What should I watch for while using this medicine? See your health care provider for all shots of this vaccine as directed. To have protection from infection, you must have 3 shots of this vaccine plus boosters as needed. Tell your doctor right away if you have any serious or unusual side effects after getting this vaccine. Hydrocodone Bitartrate, Acetaminophen Oral tablet What is this medicine? ACETAMINOPHEN; HYDROCODONE (a set a JENISE anthony fen; rachelle droe KOE done) is a pain reliever. It is used to treat mild to moderate pain. How should I use this medicine? Take this medicine by mouth. Swallow it with a full glass of water. Follow the directions on the prescription label. If the medicine upsets your stomach, take the medicine with food or milk. Do not take more than you are told to take. Talk to your quality associate regarding the use of this medicine in children. This medicine is not approved for use in children. What side effects may I notice from receiving this medicine? Side effects that you should report to your doctor or health career services assistant as soon as possible: allergic reactions like skin rash, itching or hives, swelling of the face, lips, or tongue breathing problems confusion feeling faint or lightheaded, falls stomach pain yellowing of the eyes or skin Side effects that usually do not require medical attention (report to your doctor or health career services assistant if they continue or are bothersome): nausea, vomiting stomach upset What may interact with this medicine? alcohol antihistamines isoniazid medicines for depression, anxiety, or psychotic disturbances medicines for sleep muscle relaxants naltrexone narcotic medicines (opiates) for pain phenobarbital ritonavir tramadol What if I miss a dose? If you miss a dose, take it as soon as you can. If it is almost time for your next dose, take only that dose. Do not take double or extra doses. Where should I keep my medicine? Keep out of the reach of children. This medicine can be abused. Keep your medicine in a safe place to protect it from theft. Do not share this medicine with anyone. Selling or giving away this medicine is dangerous and against the law. Store at room temperature between 15 and 30 degrees C (59 and 86 degrees F). Protect from light. Keep container tightly closed. Throw away any unused medicine after the expiration date. Discard unused medicine and used packaging carefully. Pets and children can be harmed if they find used or lost packages. What should I tell my health care provider before I take this medicine? They need to know if you have any of these conditions: brain tumor Crohn's disease, inflammatory bowel disease, or ulcerative colitis drink more than 3 alcohol-containing drinks per day drug abuse or addiction head injury heart or circulation problems kidney disease or problems going to the bathroom liver disease lung disease, asthma, or breathing problems an unusual or allergic reaction to acetaminophen, hydrocodone, other opioid analgesics, other medicines, foods, dyes, or preservatives or trying to get breast-feeding What should I watch for while using this medicine? Tell your doctor or health career services assistant if your pain does not go away, if it gets worse, or if you have new or a different type of pain. You may develop tolerance to the medicine. Tolerance means that you will need a higher dose of the medicine for pain relief. Tolerance is normal and is expected if you take the medicine for a long time. Do not suddenly stop taking your medicine because you may develop a severe reaction. Your body becomes used to the medicine. This does NOT mean you are addicted. Addiction is a behavior related to getting and using a drug for a non-medical reason. If you have pain, you have a medical reason to take pain medicine. Your doctor will tell you how much medicine to take. If your doctor wants you to stop the medicine, the dose will be slowly lowered over time to avoid any side effects. You may get drowsy or dizzy when you first start taking the medicine or change doses. Do not drive, use machinery, or do anything that may be dangerous until you know how the medicine affects you. Stand or sit up slowly. There are different types of narcotic medicines (opiates) for pain. If you take more than one type at the same time, you may have more side effects. Give your health care provider a list of all medicines you use. Your doctor will tell you how much medicine to take. Do not take more medicine than directed. Call emergency for help if you have problems breathing. The medicine will cause constipation. Try to have a bowel movement at least every 2 to 3 days. If you do not have a bowel movement for 3 days, call your doctor or health career services assistant. Too much acetaminophen can be very dangerous. Do not take Tylenol (acetaminophen) or medicines that contain acetaminophen with this medicine. Many non-prescription medicines contain acetaminophen. Always read the labels carefully. Cephalexin Monohydrate Oral tablet What is this medicine? CEPHALEXIN (sef a KRISSY in) is a cephalosporin antibiotic. It is used to treat certain kinds of bacterial infections It will not work for colds, flu, or other viral infections. How should I use this medicine? Take this medicine by mouth with a full glass of water. Follow the directions on the prescription label. This medicine can be taken with or without food. Take your medicine at regular intervals. Do not take your medicine more often than directed. Take all of your medicine as directed even if you think you are better. Do not skip doses or stop your medicine early. Talk to your quality associate regarding the use of this medicine in children. While this drug may be prescribed for selected conditions, precautions do apply. What side effects may I notice from receiving this medicine? Side effects that you should report to your doctor or health career services assistant as soon as possible: allergic reactions like skin rash, itching or hives, swelling of the face, lips, or tongue breathing problems pain or trouble passing urine redness, blistering, peeling or loosening of the skin, including inside the mouth severe or watery diarrhea unusually weak or tired yellowing of the eyes, skin Side effects that usually do not require medical attention (report to your doctor or health career services assistant if they continue or are bothersome): gas or heartburn genital or anal irritation headache joint or muscle pain nausea, vomiting What may interact with this medicine? probenecid some other antibiotics What if I miss a dose? If you miss a dose, take it as soon as you can. If it is almost time for your next dose, take only that dose. Do not take double or extra doses. There should be at least 4 to 6 hours between doses. Where should I keep my medicine? Keep out of the reach of children. Store at room temperature between 59 and 86 degrees F (15 and 30 degrees C). Throw away any unused medicine after the expiration date. What should I tell my health care provider before I take this medicine? They need to know if you have any of these conditions: kidney disease stomach or intestine problems, especially colitis an unusual or allergic reaction to cephalexin, other cephalosporins, penicillins, other antibiotics, medicines, foods, dyes or preservatives or trying to get breast-feeding What should I watch for while using this medicine? Tell your doctor or health career services assistant if your symptoms do not begin to improve in a few days. Do not treat diarrhea with over the counter products. Contact your doctor if you have diarrhea that lasts more than 2 days or if it is severe and watery. If you have diabetes, you may get a false-positive result for sugar in your urine. Check with your doctor or health career services assistant. You have been given the following additional information: Finger Tip Amputation, Open Treatment Dressing Change Diphtheria Toxoid Adsorbed, Pertussis Vaccine, Acellular (Adsorbed), Tetanus Toxoid, Adsorbed Suspension for injection Hydrocodone Bitartrate, Acetaminophen Oral tablet Cephalexin Monohydrate Oral tablet No driving or operating machinery while taking medication. Sedative medication was given during your visit. Limit use of your left hand until released. (Electronically signed by Robin Portillo MD 10/25/2016 21:44)
--- NOTE | 2016-10-25 21:44 | ED MED RECONCILIATION SUMMARY ---
Patient: TASH ODEN Medication Reconciliation Report [facility] VisitID: [id number] [address] [place] [address] 45y, M Registration Date/Time: 10/25/2016 Weight: 90.7 kg Height/Length: 74 in. BMI: 25.7 ALLERGIES: Bees The patient's Home Medications are listed below: NONE. The source(s) of the original Home Medication information: Not obtained. The following Medications were given to the patient in the Emergency Department: IV NS IV Fluids bolus 500 mL over 30 minute(s), then 125 mL/hr, administered: 10/25/2016 9:07:00 AM Zofran [IVP] IVP 4 mg, administered: 10/25/2016 9:11:00 AM Dilaudid [IVP] IVP 0.5 mg, administered: 10/25/2016 9:17:00 AM TDAP [IM] IM 0.5 mL, administered: 10/25/2016 9:55:00 AM Dilaudid [IVP] IVP 0.5 mg, administered: 10/25/2016 10:29:00 AM The following Medications were prescribed to the patient: Hydrocodone/APAP 5mg/325mg: take 1 to 2 orally every 6 hours as needed for pain. Dispense fifteen (15). No refills. -- Robin Portillo MD Cephalexin 500 mg: take 1 capsule orally every 6 hours for 7 days. No refill. -- Robin Portillo MD
--- NOTE | 2016-10-25 21:44 | ED MAR SUMMARY ---
..... Medication Administration Record [facility] [address] [place] [address] Patient: TASH ODEN Visit ID: [id number] 45y, M Weight: 90.7 kg Height/Length: 74 in BMI: 25.7 ALLERGIES: Bees Start 09:07 10/25/2016 Darline Palomares R.N., Continued Upon Discharge 10:40 10/25/2016 Danis Lund R.N. Medication Administered: IV NS (SALINE), Dose: IV Fluids over 4 hour(s), Rate: 125 mL/hr, Bolus: 500 mL over 30 minute(s), Dispensed: 1000 mL bag, Site: #1 right forearm. Medication Ordered: IV NS : initial bolus 500 mL (1000 mL/hr), then 125 mL/hr for 4h (NOW); Urgent. Given 09:11 10/25/2016 Darline Palomares R.N. Medication Administered: ZOFRAN [IVP] (ONDANSETRON HCL), Dose: 4 mg IVP over 1 minute(s), Site: #1 right forearm. Medication Ordered: Zofran IV 4 mg (NOW). Given 09:17 10/25/2016 Darline Palomares R.N. Medication Administered: DILAUDID [IVP] (HYDROMORPHONE HCL PF), Dose: 0.5 mg IVP over 1 minute(s), Site: #1 right forearm. Medication Ordered: Dilaudid IV 0.5 mg (HIGH ALERT MEDICATION, NOW). Given 09:55 10/25/2016 Darline Palomares R.N. Medication Administered: TDAP [IM], Dose: 0.5 mL IM. Medication Ordered: Tdap IM 0.5 mL (NOW, per protocol). Given 10:29 10/25/2016 Dansi Lund R.N. Medication Administered: DILAUDID [IVP] (HYDROMORPHONE HCL PF), Dose: 0.5 mg IVP over 1 minute(s), Site: #1 right forearm. Medication Ordered: Dilaudid IV 0.5 mg (HIGH ALERT MEDICATION, NOW).
--- NOTE | 2016-10-25 21:44 | ED MAR SUMMARY ---
..... Medication Administration Record [facility] [address] [address] Patient: TASH ODEN Visit ID: [id number] 45y, M Weight: 90.7 kg Height/Length: 74 in BMI: 25.7 ALLERGIES: Bees Start 09:07 10/25/2016 Darline Palomares R.N., Continued Upon Discharge 10:40 10/25/2016 Danis Lund R.N. Medication Administered: IV NS (SALINE), Dose: IV Fluids over 4 hour(s), Rate: 125 mL/hr, Bolus: 500 mL over 30 minute(s), Dispensed: 1000 mL bag, Site: #1 right forearm. Medication Ordered: IV NS : initial bolus 500 mL (1000 mL/hr), then 125 mL/hr for 4h (NOW); Urgent. Given 09:11 10/25/2016 Darline Palomares R.N. Medication Administered: ZOFRAN [IVP] (ONDANSETRON HCL), Dose: 4 mg IVP over 1 minute(s), Site: #1 right forearm. Medication Ordered: Zofran IV 4 mg (NOW). Given 09:17 10/25/2016 Darline Palomares R.N. Medication Administered: DILAUDID [IVP] (HYDROMORPHONE HCL PF), Dose: 0.5 mg IVP over 1 minute(s), Site: #1 right forearm. Medication Ordered: Dilaudid IV 0.5 mg (HIGH ALERT MEDICATION, NOW). Given 09:55 10/25/2016 Darline Palomares R.N. Medication Administered: TDAP [IM], Dose: 0.5 mL IM. Medication Ordered: Tdap IM 0.5 mL (NOW, per protocol). Given 10:29 10/25/2016 Danis Lund R.N. Medication Administered: DILAUDID [IVP] (HYDROMORPHONE HCL PF), Dose: 0.5 mg IVP over 1 minute(s), Site: #1 right forearm. Medication Ordered: Dilaudid IV 0.5 mg (HIGH ALERT MEDICATION, NOW).
--- NOTE | 2016-10-25 21:44 | ED MED RECONCILIATION SUMMARY ---
Patient: TASH ODEN Medication Reconciliation Report [facility] VisitID: [id number] [address] [place] [address] 45y, M Registration Date/Time: 10/25/2016 Weight: 90.7 kg Height/Length: 74 in. BMI: 25.7 ALLERGIES: Bees The patient's Home Medications are listed below: NONE. The source(s) of the original Home Medication information: Not obtained. The following Medications were given to the patient in the Emergency Department: IV NS IV Fluids bolus 500 mL over 30 minute(s), then 125 mL/hr, administered: 10/25/2016 9:07:00 AM Zofran [IVP] IVP 4 mg, administered: 10/25/2016 9:11:00 AM Dilaudid [IVP] IVP 0.5 mg, administered: 10/25/2016 9:17:00 AM TDAP [IM] IM 0.5 mL, administered: 10/25/2016 9:55:00 AM Dilaudid [IVP] IVP 0.5 mg, administered: 10/25/2016 10:29:00 AM The following Medications were prescribed to the patient: Hydrocodone/APAP 5mg/325mg: take 1 to 2 orally every 6 hours as needed for pain. Dispense fifteen (15). No refills. -- Robin Portillo MD Cephalexin 500 mg: take 1 capsule orally every 6 hours for 7 days. No refill. -- Robin Portillo MD
== END 2016-10-25 16:01 | disposition home or self-care (01) ==
LOC: ED SRH 08:14
DX: S68.611A Complete traumatic transphalangeal amputation of left index finger, initial encounter (principal); W23.0XXA Caught, crushed, jammed, or pinched between moving objects, initial encounter; Y93.89 Activity, other specified; Y99.0 Civilian activity done for income or pay; Y92.89 Other specified places as the place of occurrence of the external cause; F17.210 Nicotine dependence, cigarettes, uncomplicated; Z23 Encounter for immunization